=== PATIENT | male | born 1975 | race Caucasian/White ===

== ENCOUNTER 2018-04-22 20:10 | Emergency (ER) | payer BC ==
[~2018-04-22] VITALS: Ht 185.4 cm; Wt 124.7 kg
[2018-04-22] MEDS ORDERED: ERYT1OIN6 OP (20:36)
[2018-04-22] MEDS ORDERED: PRED20TA PO (20:36)
[2018-04-22] MEDS ORDERED: VALA1000 PO (20:36)
--- NOTE | 2018-04-22 20:36 | PHYS DOC ---
Past Medical History Past Medical History: No Pertinent History Past Surgical History: Appendectomy [place] Pack Per Day Alcohol Use: None Drug Use: None Adult General Chief Complaint Chief Complaint: NEURO SYMPTOMS/DEFICITS HPI HPI Patient is a 42-year-old male presents with isolated right facial droop that began this morning. Patient denies any associated pain, numbness, tingling, paralysis, dizziness, or changes in vision. Patient reports recent history of sinusitis. Patient denies trauma. Patient denies any history of blood clots or heart disease. Review of Systems Review of Systems Constitutional: Denies fever or chills [] Eyes: Denies change in visual acuity, redness, or eye pain [] HENT: Denies nasal congestion or sore throat [] Respiratory: Denies cough or shortness of breath [] Cardiovascular: Denies chest pain or palpitations [] GI: Denies abdominal pain, nausea, vomiting, or diarrhea [] : Denies dysuria or hematuria [] Integument: Denies rash or skin lesions [] Neurologic: Reports isolated right sided facial weakness, denies headache or sensory changes [] Complete systems were reviewed and found to be within normal limits, except as documented in this note. Current Medications Current Medications Current Medications Medications (Trade) Dose Ordered Sig/[facility] Start Time Stop Time Status Last Admin Dose Admin Dexamethasone (Decadron) 10 mg 1X ONCE 04/22/18 20:45 04/22/18 20:46 DC 04/22/18 20:53 10 MG Erythromycin (Romycin) 0.25 inch 1X ONCE 04/22/18 21:00 04/22/18 21:01 DC 04/22/18 20:55 0.25 INCH Valacyclovir HCl (Valtrex) 1,000 mg 1X ONCE 04/22/18 20:45 04/22/18 20:46 DC 04/22/18 20:55 1,000 MG Allergies Allergies Allergies Coded Allergies Type Severity Reaction Last Updated Verified No Known Drug Allergies 04/22/18 No Physical Exam Physical Exam Constitutional: Well developed, well nourished, no acute distress, non-toxic appearance. [] HENT: Normocephalic, atraumatic, nose normal. [] Eyes: EOMI, conjunctiva normal, no discharge. [] Neck: Normal range of motion, no tenderness, supple. [] Cardiovascular: Heart rate regular rhythm, no murmur [] Lungs & Thorax: Bilateral breath sounds clear to auscultation [] Abdomen: Bowel sounds normal, soft, no tenderness. [] Skin: Warm, dry, no erythema, no rash. [] Back: No tenderness, no CVA tenderness. [] Extremities: No tenderness, no cyanosis, no clubbing, ROM intact, no edema. [] Neurologic: Alert and oriented X 3, isolated right sided facial droop of the eye and mouth, no sensory deficits, no motor deficits of the B/L UE and LE, cerebellum intact [] Psychologic: Affect normal, judgement normal, mood normal. [] Current Patient Data Vital Signs Vital Signs Date Time Temp Pulse Resp B/P (MAP) Pulse Ox O2 Delivery O2 Flow Rate FiO2 04/22/18 20:46 62 98 04/22/18 20:12 98.0 16 158/101 (120) Room Air 98.0 Lab Values Laboratory Tests Test 04/22/18 20:18 Glucose (Fingerstick) 87 mg/dL (70-99) EKG EKG [] Radiology/Procedures Radiology/Procedures [] Course & Med Decision Making Course & Med Decision Making Pertinent Labs and Imaging studies reviewed. (See chart for details) Patient is a 42 YO M that presented with isolated right facial droop that began this morning. History and physical exam were concerning for hernandez's palsy. No risk factors or other physical exam findings indicative of stroke. Steroids and anti-virals initiated for treatment of Hernandez's palsy. Patient stable for discharge with outpatient follow-up with PCP. Discussed findings and plan with patient and family, who acknowledge understanding and agreement. Dragon Disclaimer Dragon Disclaimer This electronic medical record was generated, in whole or in part, using a voice recognition dictation system. Departure Departure Impression: Primary Impression: Hernandez's palsy Disposition: HOME, SELF-CARE Condition: STABLE Patient Instructions: Hernandez's Palsy Scripts Erythromycin Base (Erythromycin) 1 Gm Oint...g. 0.5 INCH OP TID for 5 Days, MISC Prov: VICTOR M JARRETT DO 04/22/18 Valacyclovir Hcl (VALACYCLOVIR) 1,000 Mg Tablet 1 TAB PO TID for 7 Days, #21 TAB Prov: VICTOR M JARRETT DO 04/22/18 Prednisone (PREDNISONE) 20 Mg Tablet 1 TAB PO BID for 10 Days, #20 TAB Prov: VICTOR M JARRETT DO 04/22/18 VICTOR M JARRETT DO Apr 22, 2018 20:36
[2018-04-22] MEDS ORDERED: valACYclovir 500 MG TABLET. PO ONE (20:45)
[2018-04-22] MEDS ORDERED: DEXAMETHASONE 4 MG TABLET PO ONE (20:45)
[2018-04-22 20:46] VITALS: BP 175/86
[2018-04-22] MEDS ORDERED: ERYTHROMYCIN 0.5% OPHTH OINTMENT 1GM TUBE. OD ONE (21:00)
== END 2018-04-22 21:04 | disposition home or self-care (01) ==
LOC: ER 20:10
DX: G51.0 Bell's palsy (principal); F17.200 Nicotine dependence, unspecified, uncomplicated; Z90.89 Acquired absence of other organs
CPT/HCPCS: 82962; 99284; J8540